=== PATIENT | male | born 1955 | race Caucasian/White ===

== ENCOUNTER 2019-03-27 12:26 | Day surgery (SDC) | payer MEDICARE ==
[~2019-03-27] VITALS: Ht 182.9 cm; Wt 101.9 kg
[~2019-03-27 12:26] MED LIST: METO50ER PO
--- NOTE | 2019-03-27 13:34 | NUR ---
03/27/19 1334 Abena Mchugh 1 IV MISS IN RH BY KALI VALVE 1 MISSED IV IN RAC BY KALI VALVE 1 GOOD IV IN LH BY ELEAZAR PT TOW
== END 2019-03-27 15:23 | disposition home or self-care (01) ==
LOC: ORSCSDS 12:26
PROVIDERS: Internal Medicine Gastroenterology
PROC: 0DB98ZX Excision of Duodenum, Via Natural or Artificial Opening Endoscopic, Diagnostic (ICD-10-PCS; principal; 2019-03-27 13:45)
PROC: 0DB68ZX Excision of Stomach, Via Natural or Artificial Opening Endoscopic, Diagnostic (ICD-10-PCS; principal; 2019-03-27 13:45)
PROC: 0DBH8ZX Excision of Cecum, Via Natural or Artificial Opening Endoscopic, Diagnostic (ICD-10-PCS; principal; 2019-03-27 13:45)
PROC: 0DBK8ZX Excision of Ascending Colon, Via Natural or Artificial Opening Endoscopic, Diagnostic (ICD-10-PCS; principal; 2019-03-27 13:45)
PROC: 0DBM8ZX Excision of Descending Colon, Via Natural or Artificial Opening Endoscopic, Diagnostic (ICD-10-PCS; principal; 2019-03-27 13:45)
DX: K92.1 Melena (principal); K29.80 Duodenitis without bleeding; K29.00 Acute gastritis without bleeding; D12.0 Benign neoplasm of cecum; D12.2 Benign neoplasm of ascending colon; K63.5 Polyp of colon; K63.89 Other specified diseases of intestine; K57.30 Diverticulosis of large intestine without perforation or abscess without bleeding; K64.8 Other hemorrhoids; K59.00 Constipation, unspecified; I10 Essential (primary) hypertension; G47.33 Obstructive sleep apnea (adult) (pediatric); Z87.891 Personal history of nicotine dependence
CPT/HCPCS: 88305; 88342; J2704; J7120

== ENCOUNTER → 2019-04-17 | Outpatient (CLI) | payer MEDICARE ==
[2019-04-19 11:06] LABS: H. PYLORI BREATH TEST Negative (Negative)
== END | disposition home or self-care (01) ==
LOC: LAB 15:55 → LAB SHORT 15:55
PROVIDERS: Internal Medicine Gastroenterology
DX: K92.1 Melena (principal); R10.13 Epigastric pain
CPT/HCPCS: 83013

== ENCOUNTER → 2021-06-04 | Outpatient (CLI) | payer OTHER ==
[~2021-06-04] MED LIST changes: +LOSARTAN POTAS100 M1 PO; +TAMS.4ER PO
== END | disposition home or self-care (01) ==
LOC: LAB 15:00 → LAB SHORT 15:00
DX: R19.5 Other fecal abnormalities (principal)
CPT/HCPCS: 87177; 87209

== ENCOUNTER 2021-10-27 09:06 | Day surgery (SDC) | payer OTHER ==
[~2021-10-27] VITALS: Ht 182.9 cm; Wt 113.2 kg
--- NOTE | 2021-10-27 09:35 | NUR ---
10/27/21 0935 Yovnne Briggs PT SCHEDULED MAC CASE D/T ANJUM & ELEVATED BMI. ANESTHESIA & ADDY PARRISHAY TO PROCEED WITH NURSE SEDATION AFTER PT EVALUATION.
[2021-10-27] MEDS ORDERED: TURMERIC ROOT5000 GM (09:41)
[2021-10-27] MEDS ORDERED: CENTRUM SILVER1 EAC2 (09:41)
--- NOTE | 2021-10-27 10:45 | NUR ---
10/27/21 1045 Yvonne Briggs (Janie 89MM OPA PLACED AT 1017 D/T SEVERE ANJUM/OBSTRUCTING.
== END 2021-10-27 11:30 | disposition home or self-care (01) ==
LOC: ORSCSDS 09:06
PROVIDERS: Student in an Organized Health Care Education/Training Program
PROC: 0DBL8ZX Excision of Transverse Colon, Via Natural or Artificial Opening Endoscopic, Diagnostic (ICD-10-PCS; principal; 2021-10-27 10:15)
PROC: 0DBH8ZX Excision of Cecum, Via Natural or Artificial Opening Endoscopic, Diagnostic (ICD-10-PCS; principal; 2021-10-27 10:15)
PROC: 0DBN8ZX Excision of Sigmoid Colon, Via Natural or Artificial Opening Endoscopic, Diagnostic (ICD-10-PCS; principal; 2021-10-27 10:15)
PROC: 0DBP8ZX Excision of Rectum, Via Natural or Artificial Opening Endoscopic, Diagnostic (ICD-10-PCS; principal; 2021-10-27 10:15)
PROC: 0DBK8ZX Excision of Ascending Colon, Via Natural or Artificial Opening Endoscopic, Diagnostic (ICD-10-PCS; principal; 2021-10-27 10:15)
DX: Z12.11 Encounter for screening for malignant neoplasm of colon (principal); Z86.010 Personal history of colon polyps; D12.3 Benign neoplasm of transverse colon; D12.0 Benign neoplasm of cecum; D12.2 Benign neoplasm of ascending colon; K63.5 Polyp of colon; D12.8 Benign neoplasm of rectum; K57.30 Diverticulosis of large intestine without perforation or abscess without bleeding; K44.9 Diaphragmatic hernia without obstruction or gangrene; F17.210 Nicotine dependence, cigarettes, uncomplicated; I10 Essential (primary) hypertension; Z79.899 Other long term (current) drug therapy
CPT/HCPCS: J2704; J7120

== ENCOUNTER → 2023-12-14 | Outpatient (CLI) | payer OTHER ==
[~2023-12-14] MED LIST changes: +CENTRUM SILVER1 EAC2; +TURMERIC ROOT5000 GM
== END ==
LOC: LAB SHORT 16:17 → LAB 16:17
DX: L08.0 Pyoderma (principal)
CPT/HCPCS: 87070; 87205

== ENCOUNTER 2024-09-03 08:50 | Day surgery (SDC) | payer OTHER ==
[~2024-09-03] VITALS: Ht 182.9 cm; Wt 114.8 kg
[~2024-09-03 08:50] MED LIST changes: +Lactated Ringer's 1,000 ML IV ONE; +propofoL 50 ML IV ONE
[2024-09-03] MEDS ORDERED: Lactated Ringer's 1,000 ML IV ONE (09:37)
[2024-09-03 10:30] VITALS: BP 117/88
== END 2024-09-03 10:32 | disposition home or self-care (01) ==
LOC: ORSCSDS 08:50
PROVIDERS: Internal Medicine Gastroenterology
PROC: 0DBK8ZX Excision of Ascending Colon, Via Natural or Artificial Opening Endoscopic, Diagnostic (ICD-10-PCS; principal; 2024-09-03 10:15)
DX: Z12.11 Encounter for screening for malignant neoplasm of colon (principal); K63.5 Polyp of colon; K57.30 Diverticulosis of large intestine without perforation or abscess without bleeding; Z86.0100 Personal history of colon polyps, unspecified
CPT/HCPCS: 88305; J2704; J7120